=== PATIENT | female | born 1980 | race Caucasian/White ===

== ENCOUNTER 2022-11-09 18:36 | Emergency (ER) | payer OTHER ==
--- NOTE | 2022-11-09 19:27 | ED ---
ENT HPI - General Chief complaint: Recheck/Abnormal Lab/Rx Stated complaint: THYROID NODULE SENT BY PCP Time Seen by Provider: 11/09/22 19:05 Source: patient, RN notes reviewed Mode of arrival: ambulatory Limitations: no limitations - History of Present Illness Initial comments: This is a 42-year-old female who presents to the emergency department for co ncerns of a thyroid nodule. States that over the last 2 weeks she's noticed a lump in her throat that seems to be increasing in size. She had blood work done a week ago, demonstrating hyperthyroidism. She was not started on any medications. States that she did recently start taking Trulicity, and her boyfriend was looking up side effects, and one of them was thyroid tumors. She has since stopped taking Trulicity. She was taking this for weight loss, she does not have diabetes. Since having her blood work done a week ago, states that the lump seems to be continuing to grow. She is now having difficulty swallowing and states that it is affecting her speech. She has not had any imaging on this area. Denies any fevers, chills, sore throat, cough, dyspnea, chest pain, palpita tions, abdominal pain, nausea, vomiting, diarrhea, back pain, or headaches. - Related Data Allergies Allergy/AdvReac Type Severity Reaction Status Date / Time No Known Allergies Allergy Verified 11/09/22 18:43 Review of Systems ROS Statement: Those systems with pertinent positive or pertinent negative responses have been documented in the HPI. ROS Other: All systems not noted in ROS Statement are negative. Past Medical History Past Medical History: No Reported History History of Any Multi-Drug Resistant Organisms: None Reported Past Surgical History: Orthopedic Surgery Past Psychological History: ADD/ADHD Smoking Status: Current every day smoker Past Alcohol Use History: None Reported Past Drug Use History: None Reported General Exam Limitations: no limitations General appearance: alert, in no apparent distress Head exam: Present: atraumatic, normocephalic, normal inspection Neck exam: Present: full ROM, thyromegaly. Absent: tenderness Respiratory exam: Present: normal lung sounds bilaterally. Absent: respiratory distress, wheezes, rales, rhonchi, stridor Cardiovascular Exam: Present: regular rate, normal rhythm, normal heart sounds. Absent: systolic murmur, diastolic murmur, rubs, gallop, clicks Neurological exam: Present: alert, oriented X3, CN II-XII intact Psychiatric exam: Present: normal affect, normal mood Skin exam: Present: warm, dry, intact, normal color. Absent: rash Course Vital Signs 11/09/22 11/09/22 18:38 23:27 Temperature 98.6 F 98.4 F Pulse Rate 91 75 Respiratory 20 18 Rate Blood Pressure 128/80 137/67 O2 Sat by Pulse 99 100 Oximetry Medical Decision Making - Medical Decision Making This is a 42-year-old female who presents to the emergency department for a lump on her neck. Was pt. sent in by a medical professional or institution? @ -No Did you speak to anyone other than the patient for history? @ -No Did you review nursing and triage notes? @ -Yes, and I agree, it is accurate with regards to the patient's symptoms. Were old charts reviewed? @ -No Differential Diagnosis? @ -Differential Neck Lump: Lymphadenopathy, thyromegaly, thyroid nodule, malignancy, this is not meant to be an all-inclusive list. EKG interpreted by me (3pts min.)? @ -Not obtained X-rays interpreted by me (1pt min.)? @ -Not obtained CT interpreted by me (1pt min.)? @ -Not obtained U/S interpreted by me (1pt. min.)? @ -Not interpreted by me What testing was considered but not performed? (CT, X-rays, U/S, labs)? Why? @ -None What meds were considered but not given? Why? @ -None Did you discuss the management of the patient with other professionals? @ -No Did you reconcile home meds? @ -No Was smoking cessation discussed for >3mins.? @ -No Was critical care preformed (if so, how long)? @ -No Were there social determinants of health that impacted care today? How? (Homelessness, low income, unemployed, alcoholism, drug addiction, transportation, low edu. Level, literacy, decrease access to med. care, skilled nursing, rehab)? @ -No Was there de-escalation of care discussed even if they declined? (Discuss DNR or withdrawal of care, Hospice)? @ -No What co-morbidities impacted this encounter? (DM, HTN, Smoking, COPD, CAD, Cancer, CVA, Hep., AIDS, mental health diagnosis, sleep apnea, morbid obesity)? @ -Morbid obesity Was patient admitted / discharged? @ -Discharged. Ultrasound of the thyroid obtained revealing a multinodular goiter. There is a dominant 4.3 cm complex cystic solid nodule in the left lobe that warrants fine-needle aspiration. Lab work obtained revealing an undetectable TSH. However, free T4 is within normal limits at 1.51. The emely smith is not exhibiting any systemic signs or symptoms of hyperthyroidism at this time. Discussed with the patient that she will need a fine-needle aspiration biopsy done on an outpatient basis for further evaluation of this. Information for follow-up with endocrinology was provided. She is instructed to contact them first thing in the morning for a follow-up appointment. Undiagnosed new problem with uncertain prognosis? @ -None Drug Therapy requiring intensive monitoring for toxicity (Heparin, Nitro, Insulin, Cardizem)? @ -None Were any procedures done? @ -None Diagnosis/symptom? @ -Thyroid goiter, hyperthyroidism Acute, or Chronic, or Acute on Chronic? @ -Acute Uncomplicated (without systemic symptoms) or Complicated (systemic symptoms)? @ -Uncomplicated Side effects of treatment? @ -None Exacerbation, Progression, or Severe Exacerbation] @ -Not applicable Poses a threat to life or bodily function? @ -Potentially, this will depend on the etiology of the thyroid nodules and how quickly this progresses. Return precautions reviewed in depth, the patient is instructed to return to the emergency department with any new, worsening, or concerning symptoms. Patient verbalized understanding. This case was discussed in detail with the attending ED physician, Dr. Fischer. Presentation, findings, and treatment plan discussed in detail as well. - Lab Data Result diagrams: 11/09/22 19:16 11/09/22 19:16 Lab Results 11/09/22 11/09/22 11/09/22 Range/Units 19:16 19:16 22:34 WBC 7.7 (3.8-10.6) k/uL RBC 4.76 (3.80-5.40) m/uL Hgb 14.1 (11.4-16.0) gm/dL Hct 40.8 (34.0-46.0) % MCV 85.8 (80.0-100.0) fL MCH 29.6 (25.0-35.0) pg MCHC 34.5 (31.0-37.0) g/dL RDW 12.3 (11.5-15.5) % Plt Count 203 (150-450) k/uL MPV 8.7 Neutrophils % 49 % Lymphocytes % 42 % Monocytes % 4 % Eosinophils % 3 % Basophils % 0 % Neutrophils # 3.8 (1.3-7.7) k/uL Lymphocytes # 3.2 (1.0-4.8) k/uL Monocytes # 0.3 (0-1.0) k/uL Eosinophils # 0.2 (0-0.7) k/uL Basophils # 0.0 (0-0.2) k/uL ESR 4 (0-20) mm/hr Sodium 138 (137-145) mmol/L Potassium 4.3 (3.5-5.1) mmol/L Chloride 104 (98-107) mmol/L Carbon Dioxide 27 (22-30) mmol/L Anion Gap 7 mmol/L BUN 12 (7-17) mg/dL Creatinine 0.68 (0.52-1.04) mg/dL Est GFR (CKD-EPI)AfAm >90 (>60 ml/min/1.73 sqM) Est GFR (CKD-EPI)NonAf >90 (>60 ml/min/1.73 sqM) Glucose 88 (74-99) mg/dL Calcium 9.0 (8.4-10.2) mg/dL Total Bilirubin 0.5 (0.2-1.3) mg/dL AST 21 (14-36) U/L ALT 20 (4-34) U/L Alkaline Phosphatase 48 (38-126) U/L C-Reactive Protein <0.5 (<1.0) mg/dL Total Protein 6.7 (6.3-8.2) g/dL Albumin 4.3 (3.5-5.0) g/dL TSH <0.015 L (0.465-4.680) mIU/L Free T4 1.51 (0.78-2.19) ng/dL - Radiology Data Radiology results: report reviewed, image reviewed Disposition Clinical Impression: Thyroid goiter, Hyperthyroidism Disposition: HOME SELF-CARE Instructions (If sedation given, give patient instructions): Hyperthyroidism (ED), Thyroid Goiter (ED), Thyroid Nodules (ED) Additional Instructions: Return to the emergency department with any new, worsening, or concerning symptoms. Contact endocrinology as listed below first thing tomorrow morning. Let them know that you were seen in the emergency department and diagnosed with a multinodular goiter on your thyroid, and you will need a fine-needle aspiration biopsy due to the size, and they will get you in for a follow-up ap pointment. Follow up with your primary care provider in 1-2 days. Is patient prescribed a controlled substance at d/c from ED?: No Referrals: Leela Levy MD [Primary Care Provider] - 1-2 days Anabel Arndt [STAFF PHYSICIAN] - 1-2 days
[2022-11-09 20:02] LABS: Basophils % (A) 0 %; Eosinophils # (A) 0.2 k/uL (0-0.7); Eosinophils % (A) 3 %; HCT 40.8 % (34.0-46.0); HGB 14.1 gm/dL (11.4-16.0); Lymphocytes # (A) 3.2 k/uL (1.0-4.8); Lymphocytes % (A) 42 %; MCH 29.6 pg (25.0-35.0); MCHC 34.5 g/dL (31.0-37.0); MCV 85.8 fL (80.0-100.0); Mean Platelet Volume 8.7; Monocytes # (A) 0.3 k/uL (0-1.0); Monocytes % (A) 4 %; Neutrophils # (A) 3.8 k/uL (1.3-7.7); Neutrophils % (A) 49 %; Platelet Count 203 k/uL (150-450); RBC 4.76 m/uL (3.80-5.40); RDW 12.3 % (11.5-15.5); WBC 7.7 k/uL (3.8-10.6)
[2022-11-09 20:40] LABS: ALT 20 U/L (4-34); AST 21 U/L (14-36); African American GFR (CKD) >90 (>60 ml/min/1.73 sqM); Albumin 4.3 g/dL (3.5-5.0); Alkaline Phosphatase 48 U/L (38-126); Anion Gap 7 mmol/L; Blood Urea Nitrogen 12 mg/dL (7-17); Carbon Dioxide 27 mmol/L (22-30); Chloride 104 mmol/L (98-107); Glucose 88 mg/dL (74-99); Non-African American GFR(CKD) >90 (>60 ml/min/1.73 sqM); Potassium 4.3 mmol/L (3.5-5.1); Sodium 138 mmol/L (137-145); Total Bilirubin 0.5 mg/dL (0.2-1.3); Total Protein 6.7 g/dL (6.3-8.2)
--- NOTE | 2022-11-09 20:41 | US ---
EXAMINATION TYPE: US thyroid st tissue head/neck DATE OF EXAM: 11/09/2022 COMPARISON: NONE CLINICAL INDICATION: Female, 42 years old with history of Thyroid lump; Lump on left side of neck. Pt states abd thyroid labs. Lump has gotten bigger in the last week GLAND SIZE: Right Lobe: 5.3 x 1.8 x 1.9 cm Overall Parenchyma: heterogenous Left Lobe: 6.0 x 2.0 x 3.2 cm Overall Parenchyma: heterogenous Isthmus Thickness: 0.4 cm NODULES RIGHT: # of nodules measured on right: 2 1. 1.4 X 1.0 x 0.8 cm, lower mid, solid or almost completely solid, isoechoic TR 3 nodule, which is wider than tall, with ill-defined margins, without echogenic foci. 2. 0.7 X 0.6 x 0.5 cm, upper mid, cystic or almost completely cystic, TR 3 nodule, which is wider t dumas tall, with smooth margins, without echogenic foci. LEFT: # of nodules measured on left: 2 1. 4.3 X 3.4 x 3.1 cm, lower mid, mixed cystic and solid, hypoechoic TR 3 nodule, which is wider th an tall, with lobulated or irregular margins, without echogenic foci. 2. 2.1 X 1.8 x 1.4 cm, lower medial, mixed cystic and solid, hyperechoic TR 3 nodule, which is wid er than tall, with ill-defined margins, without echogenic foci. ISTHMUS: # of nodules measured in the isthmus: 0 Prominent but nonenlarged lymph nodes seen lateral to right thyroid measuring 1.4 x 1.0 x 0.6cm Large complex thyroid nodule seen on the left lobe of thyroid measuring 4.3 x 3.4 x 3.1cm IMPRESSION: 1. Correlate for multinodular goiter. 2. There is a dominant 4.3 cm complex solid cystic nodule in the left lobe. This is a TR3 nodule and warrants FNA. 3. Additional TR3 nodules on both sides can be followed. The next largest is also on the left measuri ng 2.1 cm. FNA if it reaches 2.5 cm. 4. Prominent but nonenlarged lymph node along the right side of the neck measuring 1.4 x 1.0 x 0.6 cm (1.0 cm short axis).
[2022-11-09 20:45] LABS: Erythrocyte Sedimentation Rate 4 mm/hr (0-20)
[2022-11-09 22:20] LABS: C Reactive Protein <0.5 mg/dL (<1.0)
[2022-11-09 23:29] VITALS: BP 137/67; PULSE 75; RESP 18; TEMP 98.4
== END 2022-11-09 23:29 | disposition home or self-care (01) ==
LOC: EC 18:36
DX: E05.90 Thyrotoxicosis, unspecified without thyrotoxic crisis or storm (principal); E04.9 Nontoxic goiter, unspecified; F17.200 Nicotine dependence, unspecified, uncomplicated
CPT/HCPCS: 36415; 76536; 80053; 84439; 84443; 85025; 85652; 86140; 99284

== ENCOUNTER → 2022-12-21 | Outpatient (CLI) | payer BC, OTHER ==
--- NOTE | 2022-12-22 12:35 | NM ---
EXAMINATION TYPE: NM thyroid image w uptake DATE OF EXAM: 12/22/2022 COMPARISON: Ultrasound 11/09/2022 CLINICAL INDICATION: Female, 42 years old with history of E04.2 THYROID NODULE; TECHNIQUE: Thyroid iodine uptake is calculated and images performed after the oral administration of 309 uCi 1-123 Capsule. FINDINGS: Thyroid imaging demonstrates area of heterogenous uptake involving the lower pole of the le ft thyroid lobe corresponding to the dominant 4.3 cm nodule seen at ultrasound. There is central decr eased uptake with peripheral increased uptake. There is also a warm nodule lower pole right thyroid l obe additional heterogenous uptake throughout the right thyroid lobe. The 4 hour iodine uptake is calculated at 15% (normal range 8-14%). The 24-hour iodine uptake is calc ulated at 35.4% (normal range 15-35%). IMPRESSION: 1. 4 and 24 hour uptake is slightly outside of the normal range at the top end. Correlate with thyroi d function testing. 2. Heterogenous uptake noted throughout both thyroid lobes. Large mass lower pole left thyroid lobe d emonstrate central decreased uptake in peripheral increased uptake. The findings are nonspecific and tissue diagnosis is recommended.
== END | disposition home or self-care (01) ==
LOC: RADNMMAIN 09:02
PROVIDERS: ATTEND Internal Medicine Endocrinology, Diabetes & Metabolism
DX: E04.2 Nontoxic multinodular goiter (principal)
CPT/HCPCS: 78014; A9516

== ENCOUNTER 2022-12-28 13:08 | Day surgery (SDC) | payer BC, OTHER ==
[2022-12-28 13:46] VITALS: TEMP 97.9
[2022-12-28 15:24] VITALS: BP 122/70; PULSE 65; RESP 16
--- NOTE | 2022-12-28 15:42 | US ---
ULTRASOUND GUIDED FNA THYROID BIOPSY: CLINICAL HISTORY: Request for 2 left-sided thyroid nodule FNA FINDINGS: The procedure was explained to the patient. The risks, complications, benefits and alternatives were discussed and any questions were answered. Informed consent was obtained. Patient was placed supin e on the ultrasound table and prepped and draped in the usual sterile fashion. Utilizing a 25 gauge needle, five passes were made into the requested 2 left thyroid nodules. Patient was stable throughout the procedure. Pathology is pending. All elements of maximal barrier technique were utilized. IMPRESSION: 1. Successful ultrasound guided FNA thyroid biopsy. Note is made to larger nodule is almost entirely cystic which can result in a lower diagnostic yield.
== END 2022-12-28 15:00 | disposition home or self-care (01) ==
LOC: RADPROMAIN 13:08
PROVIDERS: ATTEND Internal Medicine Endocrinology, Diabetes & Metabolism
DX: E04.2 Nontoxic multinodular goiter (principal)
CPT/HCPCS: 10005; 10006; 88173; 88305

== ENCOUNTER → 2023-07-25 | Outpatient (CLI) | payer OTHER ==
[2023-07-25 18:39] LABS: Basophils % (A) 1.2 %; Eosinophils # (A) 0.25 X 10*3/uL (0.04-0.35); Eosinophils % (A) 2.9 %; HCT 46.3 % (37.2-46.3); Lymphocytes # (A) 3.51 X 10*3/uL (0.90-5.00); Lymphocytes % (A) 40.4 %; MCH 29.2 pg (27.0-32.0); MCHC 32.4 g/dL (32.0-37.0); MCV 90.1 FL (80.0-97.0); Mean Platelet Volume 11.7 FL (9.5-12.2); Monocytes # (A) 0.51 X 10*3/uL (0.20-1.00); Monocytes % (A) 5.9 %; NRBC Per 100 WBC 0 X 10*3/uL (0.00-0.01); Neutrophils # (A) 4.28 X 10*3/uL (1.80-7.70); Neutrophils % (A) 49.3 %; Platelet Count 230 X 10*3/uL (140-440); RBC 5.14 X 10*6/uL (4.10-5.20); RDW 12.6 % (11.5-14.5); WBC 8.68 X 10*3/uL (4.50-10.00)
[2023-07-25 20:26] LABS: ALT 24 U/L (8-44); AST 20 U/L (13-35); Albumin 4.6 g/dL (3.8-4.9); Albumin/Globulin Ratio 2.42 Ratio (1.60-3.17); Alkaline Phosphatase 69 U/L (41-126); BUN/Creat Ratio 20.29 Ratio (12.00-20.00); Blood Urea Nitrogen 14.2 mg/dL (9.0-27.0); Calcium 9.3 mg/dL (8.7-10.3); Carbon Dioxide 19.6 mmol/L (21.6-31.8); Chloride 106 mmol/L (96-109); Chol/HDL Ratio 3.44 Ratio; Globulin 1.9 g/dL (1.6-3.3); Glucose 108 mg/dL (70-110); LDL Cholesterol,Calculated 97.6 mg/dL (0.0-131.0); Potassium 4.6 mmol/L (3.5-5.5); Sodium 139 mmol/L (135-145); T4, Free (Free Thyroxine) 1.14 ng/dL (0.80-1.80); Total Bilirubin 0.4 mg/dL (0.3-1.2); Total Protein 6.5 g/dL (6.2-8.2)
== END | disposition home or self-care (01) ==
LOC: LABWHC1 09:55
PROVIDERS: ATTEND Family Medicine
DX: Z00.00 Encounter for general adult medical examination without abnormal findings (principal)
CPT/HCPCS: 36415; 80053; 80061; 82306; 84439; 84443; 85025

== ENCOUNTER 2023-10-20 09:35 | Emergency (ER) | payer OTHER ==
[2023-10-20] MEDS ORDERED: HYDROmorphone 0.5 MG/0.5 ML SYRINGE ONE ×2 (10:49→13:28)
--- NOTE | 2023-11-15 16:26 | US ---
EXAMINATION TYPE: US abdomen APPY DATE OF EXAM: 11/15/2023 COMPARISON: NONE CLINICAL INDICATION: Female, 43 years old with history of pain; TECHNIQUE: Multiple sonographic images of the right lower quadrant were obtained with graded compress ion. FINDINGS: APPENDIX Annulus visualized Is the appendix seen in its entirety from the proximal cecum to distal end: No Is the appendix compressible: N/A Does the appendix wall appear hypervascular: N/A Is an appendicolith present: N/A Is there inflammatory changes or free fluid present: No IMPRESSION: Unable to identify the appendix by ultrasound. Further clinical correlation will be needed for any hannah spected acute appendicitis.
== END 2023-10-20 14:45 | disposition home or self-care (01) ==
LOC: EC 09:35
CPT/HCPCS: 76705; 96372; 99284

== ENCOUNTER → 2023-10-27 | Outpatient (CLI) | payer BC, OTHER | END | disposition home or self-care (01) | LOC: LABWHC1 14:46 | PROVIDERS: ATTEND Family Medicine | DX: Z90.09 Acquired absence of other part of head and neck (principal) | CPT/HCPCS: 36415; 84439; 84443; 84481 ==